=== PATIENT | male | born 1950 | race Caucasian/White ===

== ENCOUNTER → 2016-10-22 08:27 | Outpatient (CLI) | payer MEDICARE, BC ==
[2012-12-26 01:01] VITALS: BMI 28.7
[~2016-10-22 08:27] MED LIST: ASPIRIN 81 MG E81 MG PO; CENTRUM COMPLE1 EACH PO; COLACE100 MG PO; LISINOPRIL10 MG PO; PLAVIX75 MG PO; WELLBUTRIN75 MG PO; ZOCOR20 MG PO
== END | disposition home or self-care (01) ==
LOC: D.NM 08:27
DX: K30 Functional dyspepsia (principal)

== ENCOUNTER 2017-01-27 06:08 | Day surgery (SDC) | payer MEDICARE, BC ==
--- NOTE | 2017-01-26 09:06 | NUR ---
ARAM APPT: DR. RENNER'S NURSE, MATTEO, NOTIFIED PATIENT CURRENTLY TAKING PLAVIX. STATES "THAT'S OK, HE DOES NOT NEED TO STOP IT".
[2017-01-26 10:14] LABS: BASOPHILS 0.4 % (0-2); EOSINOPHILS 6.4 % (0-7); HEMATOCRIT 40.4 % (42.0-54.0); HEMOGLOBIN 13.5 g/dL (13.5-17.5); IMMATURE GRANULOCYTES 0.1 % (0-5); LYMPHOCYTES 32.4 % (15-50); MCHC 33.4 g/dL (31.0-37.0); MCV 95.7 fL (80.0-100.0); MEAN PLATELET VOLUME 10.2 fL (7.4-10.4); MONOCYTES 11.8 % (2-11); NEUTROPHILS 48.9 % (40-80); PLATELET COUNT 253 10x3/uL (130-400); RBC 4.22 10x6/uL (4.20-6.10); RDW 13.7 % (11.5-14.5); WBC 6.9 10x3/uL (4.8-10.8)
[2017-01-26 10:24] LABS: ANION GAP 17.2 mmol/L (8-16); CALCIUM 9.8 mg/dL (8.5-10.1); CARBON DIOXIDE 24.2 mmol/L (21.0-32.0); CREATININE - SERUM 1.3 mg/dL (0.6-1.3); POTASSIUM - SERUM 4.4 mmol/L (3.5-5.1)
[2017-01-26 10:48] LABS: APTT 29.7 SECONDS (22.8-39.4)
[~2017-01-27] VITALS: Ht 175.3 cm; Wt 89.8 kg
[~2017-01-27 06:08] MED LIST changes: -ASPIRIN 81 MG E81 MG PO; +BAYER CHEWABLE81 MG PO; +COREG 3.1253.125 MG PO; +TOPAMAX100 MG PO; +ZESTRIL10 MG PO
[2017-01-27] MEDS ORDERED: CYMBALTA60 MG PO (08:55)
[2017-01-27] MEDS ORDERED: FENOFIBRATE134 MG PO (08:57)
[2017-01-27] MEDS ORDERED: ACTOS30 MG PO (08:58)
[2017-01-27] MEDS ORDERED: GLUCOPHAGE500 MG PO (08:58)
[2017-01-27] MEDS ORDERED: REGLAN10 MG PO (09:01)
[2017-01-27] MEDS ORDERED: CENTRUM SILVER1 TA1 PO (09:01)
[2017-01-27] MEDS ORDERED: LIPITOR40 MG PO (09:04)
[2017-01-27] MEDS ORDERED: HYDROCODONE-APA1 TAB PO (09:05)
[2017-01-27] MEDS ORDERED: ATIVAN0.5 MG PO (09:05)
[2017-01-27] MEDS ORDERED: OMEPRAZOLE20 M1 PO (09:06)
[2017-01-27] MEDS ORDERED: INDOCIN25 MG PO (09:07)
[2017-01-27 09:17] VITALS: BP 110/72; Ht 175.3 cm; Wt 89.8 kg
[2017-01-27] MEDS ORDERED: OXYCODONE HCL5 MG PO (12:12)
--- NOTE | 2017-01-27 14:19 | NUR ---
1415 ADA FO DIET SERVED
== END 2017-01-27 15:10 | disposition home or self-care (01) ==
LOC: D.OPS 06:08 → D.PAN 10:30 → D.OPS 10:30
PROVIDERS: Anesthesiology
DX: K82.8 Other specified diseases of gallbladder (principal); E11.9 Type 2 diabetes mellitus without complications; I10 Essential (primary) hypertension; Z86.73 Personal history of transient ischemic attack (TIA), and cerebral infarction without residual deficits; I25.10 Atherosclerotic heart disease of native coronary artery without angina pectoris; K21.9 Gastro-esophageal reflux disease without esophagitis; Z01.812 Encounter for preprocedural laboratory examination

== ENCOUNTER → 2017-05-19 12:36 | Outpatient (CLI) | payer MEDICARE, BC ==
[2017-01-27 09:17] VITALS: BMI 29.3
[~2017-05-19 12:36] MED LIST changes: +ACTOS30 MG PO; +ATIVAN0.5 MG PO; +CENTRUM SILVER1 TA1 PO; +CYMBALTA60 MG PO; +FENOFIBRATE134 MG PO; +GLUCOPHAGE500 MG PO; +HYDROCODONE-APA1 TAB PO; +INDOCIN25 MG PO; +LIPITOR40 MG PO; +OMEPRAZOLE20 M1 PO; +OXYCODONE HCL5 MG PO; +REGLAN10 MG PO
== END | disposition home or self-care (01) ==
LOC: D.MRI 12:36
DX: M25.512 Pain in left shoulder (principal)

== ENCOUNTER 2017-07-13 08:00 | Emergency (ER) | payer MEDICARE, BC ==
[2017-01-27 09:17] VITALS: BMI 29.3
[2017-07-13 08:34] LABS: BASOPHILS 0.2 % (0-2); EOSINOPHILS 7.2 % (0-7); HEMATOCRIT 39.7 % (42.0-54.0); HEMOGLOBIN 13.1 g/dL (13.5-17.5); IMMATURE GRANULOCYTES 0.2 % (0-5); LYMPHOCYTES 28.4 % (15-50); MCH 31.6 pg (26.0-34.0); MCV 95.9 fL (80.0-100.0); MEAN PLATELET VOLUME 9.9 fL (7.4-10.4); MONOCYTES 10.2 % (2-11); NEUTROPHILS 53.8 % (40-80); PLATELET COUNT 249 10x3/uL (130-400); RBC 4.14 10x6/uL (4.20-6.10); RDW 13.6 % (11.5-14.5); WBC 8.4 10x3/uL (4.8-10.8)
[2017-07-13 08:56] LABS: ALBUMIN 3.5 g/dL (3.4-5.0); ANION GAP 12.2 mmol/L (8-16); BILIRUBIN - TOTAL 0.2 mg/dL (0.2-1.3); CARBON DIOXIDE 25.6 mmol/L (21.0-32.0); CREATININE - SERUM 1.2 mg/dL (0.6-1.3); POTASSIUM - SERUM 3.8 mmol/L (3.5-5.1); PROTEIN - SERUM 7.4 g/dL (6.4-8.2)
[2017-07-13 09:18] LABS: CREATINE KINASE 57 UL (21-232); MAGNESIUM - SERUM 1.9 mg/dL (1.8-2.4); TROPONIN-I < 0.017 ng/mL (0.000-0.060)
== END 2017-07-13 11:10 | disposition home or self-care (01) ==
LOC: D.ER 08:00
PROVIDERS: Emergency Medicine
DX: T39.1X5A Adverse effect of 4-Aminophenol derivatives, initial encounter (principal); Y92.019 Unspecified place in single-family (private) house as the place of occurrence of the external cause; I44.0 Atrioventricular block, first degree

== ENCOUNTER 2017-07-27 09:25 | Day surgery (SDC) | payer MEDICARE, BC ==
[2017-07-23 12:02] LABS: HEMATOCRIT 39.5 % (42.0-54.0); MCH 31.4 pg (26.0-34.0); MCHC 32.9 g/dL (31.0-37.0); MCV 95.4 fL (80.0-100.0); MEAN PLATELET VOLUME 9.7 fL (7.4-10.4); RBC 4.14 10x6/uL (4.20-6.10)
[2017-07-23 12:17] LABS: INR 0.93 (0.85-1.17); PROTIME 12.1 SECONDS (11.6-15.0)
[2017-07-23 12:24] LABS: APTT 26.5 SECONDS (22.8-39.4)
[2017-07-23 12:27] LABS: ANION GAP 10.6 mmol/L (8-16); CALCIUM 9.4 mg/dL (8.5-10.1); CARBON DIOXIDE 26.3 mmol/L (21.0-32.0); CREATININE - SERUM 1.1 mg/dL (0.6-1.3); POTASSIUM - SERUM 3.9 mmol/L (3.5-5.1)
--- NOTE | ~2017-07-27 | OP ---
PATIENT NAME: SANDRA LEIJA MEDICAL RECORD: [id number] :50 LOCATION:[facility] ADMISSION DATE: SURGEON: HELLEN DOYLE DO DATE OF OPERATION: 07/27/2017 DATE OF SURGERY: 07/27/2017 PROCEDURE PERFORMED: Left shoulder arthroscopy with subacromial decompression, distal clavicle excision, biceps tenodesis. PREOPERATIVE DIAGNOSES: Left shoulder subacromial impingement, SLAP tear and acromioclavicular joint arthritis. POSTOPERATIVE DIAGNOSES: Left shoulder subacromial impingement, SLAP tear and acromioclavicular joint arthritis. INDICATIONS: Mr. Leija is a 66-year-old male that has had left shoulder pain for quite some time. He had pain with overhead activities and even some weakening. He had tired of this giving him problems and came to my office. An MRI had been done, which demonstrated AC joint arthritis and probable SLAP tear, subacromial impingement type picture with they read as a partial thickness rotator cuff tear. I injected him in the subacromial space to give him some relief, it did not and he wanted something done surgically, so he was consented for the procedure. He was informed of the risks and benefits including, who did have a rotator cuff tear, a longer recovery and I told him I would get a better look with a scope and he was okay with that. SURGEON: Hellen Doyle DO COMPLICATIONS: None. BLOOD LOSS: Minimal. DESCRIPTION OF PROCEDURE: The patient received a block in the preoperative area by anesthesia. The patient after receiving block in the preoperative suite, given 900 mg clindamycin preoperatively. After he was given clindamycin, a timeout was performed, everyone was in agreement with the correct side, site and patient. Left shoulder was then prepped and draped in sterile fashion. The surgery then commenced with an 18-gauge spinal needle we introduced into the shoulder joint itself, insufflated with 60 mL of normal saline and then the 11 blade was used to establish posterior portal. The trocar was entered into the shoulder joint itself and the camera was then entered in and right away was a good sized SLAP tear type 2 at the superior labrum. Then, the anterior portal was established with an 18-gauge needle with an 11-blade scalpel and then a trocar was put in. The shoulder joint was inspected. He did have some arthritis in the glenohumeral joint. Chondromalacia was noted. The rotator cuff, supraspinatus, infraspinatus, and subscapularis were all inspected and there was no full-thickness tear seen on the articular side. At that time, the biceps was then tenodesed with an ablator and then once this was done, the subacromial space was entered. There was quite a bit of bursitis and bursa inflamed in the subacromial space. A lateral portal was then established and this was chewed out with a shaver. The acromion was then cleaned off of the ablator. A resection was done on that to clear the anterolateral acromion opening up the subacromial space quite a bit. The distal clavicle was then also resected back to have a total width of 7 mm in the AC joint, that was clear and OPERATIVE REPORT [id number] SANDRA LEIJA then the rotator cuff was thoroughly inspected on the bursal side. All the bursa was removed. Once the bursa was removed, there were no full-thickness tears seen whatsoever in the rotator cuff. It was rotated internally and externally and inspected very thoroughly. No tears were noted. At that time, the scope was then removed and moved to the anterior part of the humerus. A small incision was made just distal to where the pack inserted. Careful dissection was made down to the bicep tendon itself. It was pulled out through the incision, had been tenotomized in the joint, whipstitched with a suture and then the sutures ran through a button. Unicortical hole was then drilled in the humerus and the button was placed down in through that hole and cinched down and the button flipped on the underside of the cortex and a free needle was used to suture through the biceps tendon and tied down on top of it. The excess tendon and suture were then closed. The wound was thoroughly irrigated. Skin was closed with 2-0 Vicryl in an inverted interrupted fashion, 4-0 Monocryl ran on the skin in that incision. The portal sites were all closed with 4-0 Monocryl in an inverted interrupted fashion and then Dermabond was placed over each one of the incisions and then Telfa and Tegaderm. The patient was awakened and taken to recovery in stable condition, placed in a sling. TRANSINT:[id number] Voice Confirmation ID: [id number] DOCUMENT ID: [id number] HELLEN DOYLE DO at 1419 CC: [id number] DICTATION DATE: 07/27/17 1208 ADMITTANCE ATTENDANT: 07/27/17 134[id number] [place] [id number]
[2017-07-27 09:51] VITALS: BP 154/88; BMI 26.6
[2017-07-27] MEDS ORDERED: PERCOCET 10/3251 TA1 PO (11:59)
== END 2017-07-27 14:35 | disposition home or self-care (01) ==
LOC: D.OPS 09:25
PROVIDERS: Anesthesiology
DX: M75.42 Impingement syndrome of left shoulder (principal); S43.432A Superior glenoid labrum lesion of left shoulder, initial encounter; M13.812 Other specified arthritis, left shoulder; X58.XXXA Exposure to other specified factors, initial encounter; Z01.812 Encounter for preprocedural laboratory examination

== ENCOUNTER 2019-02-27 16:58 | Observation (INO) | payer MEDICARE, BC ==
[~2019-02-27] VITALS: Ht 175.3 cm; Wt 76.7 kg
[~2019-02-27 16:58] MED LIST changes: +PERCOCET 10/3251 TA1 PO
[2019-02-27 17:29] LABS: BASOPHILS 0.3 % (0-2); EOSINOPHILS 2.4 % (0-7); HEMATOCRIT 38.5 % (42.0-54.0); HEMOGLOBIN 12.6 g/dL (13.5-17.5); IMMATURE GRANULOCYTES 0.3 % (0-5); LYMPHOCYTES 24.9 % (15-50); MCH 31.3 pg (26.0-34.0); MCHC 32.7 g/dL (31.0-37.0); MCV 95.8 fL (80.0-100.0); MEAN PLATELET VOLUME 10.5 fL (7.4-10.4); MONOCYTES 10.8 % (2-11); NEUTROPHILS 61.3 % (40-80); PLATELET COUNT 238 10x3/uL (130-400); RBC 4.02 10x6/uL (4.20-6.10); RDW 13.6 % (11.5-14.5)
[2019-02-27 18:09] LABS: ALBUMIN 3.8 g/dL (3.4-5.0); ANION GAP 15.5 mmol/L (8-16); BILIRUBIN - TOTAL 0.51 mg/dL (0.2-1.3); CALCIUM 8.8 mg/dL (8.5-10.1); CARBON DIOXIDE 25.9 mmol/L (21.0-32.0); CREATININE - SERUM 1.3 mg/dL (0.6-1.3); POTASSIUM - SERUM 3.4 mmol/L (3.5-5.1); PROTEIN - SERUM 7.6 g/dL (6.4-8.2)
[2019-02-27 18:44] LABS: T4 THYROXIN - FREE 0.82 ng/dL (0.76-1.46); THYROID STIMULATING HORMONE 1.48 uIU/mL (0.36-3.74)
--- NOTE | 2019-02-27 20:00 | NUR ---
A/O WITH NO SIGNS OF ACUTE DISTRESS. IV TO THE LT FOREARM WITH NO REDNESS OR SWELLING. DENIES PAIN OR OTHER NEEDS AT THIS TIME. CONTINUE WITH PLAN OF CARE.
[2019-02-27 21:57] VITALS: BP 97/62; BMI 25.0
[2019-02-27 22:28] VITALS: BP 97/62
[2019-02-28] VITALS: BP 118/63
[2019-02-28 06:13] VITALS: BP 139/70
--- NOTE | 2019-02-28 07:12 | NUR ---
PATIENT RECIEVED FROM PREVIOUS SHIFT RESTING IN BED WITH NO NEEDS VOICED. HOPES TO BE DISCHARGED LATER TODAY
--- NOTE | 2019-02-28 08:46 | HP ---
PATIENT: SANDRA PRO MEDICAL RECORD: [id number] ACCOUNT: [id number] LOCATION:[facility] : 50 ADMISSION DATE: 02/27/19 PCP: DAR BE MD HISTORY AND PHYSICAL EXAMINATION DATE OF ADMISSION: 02/27/2019 REASON FOR ADMISSION: Syncopal episodes and hypotension. HISTORY: This is a 68-year-old white male, who I have not seen in 11 months. He has a history of depression, diabetes, hypertension, migraine headaches, heart disease, colon cancer. His states he is very depressed, he stays in bed, and does not eat much. His blood pressure has become low. He has become weakened and has been falling recently. He has lost 20 pounds since I saw him last. In my office, his blood pressure by me was 74/52 with an O2 sat of 97%. I did not feel comfortable sending him home with that lower blood pressure and he is placed in observation to [facility]. PAST MEDICAL AND SURGICAL HISTORY: Again depression, diabetes, gout, high cholesterol, hypertension, migraine headaches, coronary artery disease, stroke, colon cancer. PAST SURGICAL HISTORY: Partial resection of colon by Dr. Matamoros in November 2009. He has also had a cholecystectomy and left shoulder arthroscopy with subacromial decompression and distal clavicle excision. HOME MEDICATIONS: Include lisinopril 10 mg once a day, carvedilol 3.125 mg twice a day, atorvastatin 40 mg once a day, Plavix 75 mg once a day, fenofibrate 134 mg once a day, metformin 500 mg twice a day, Actos 30 mg once a day, lorazepam 0.5 b.i.d. p.r.n. anxiety, topiramate 100 mg twice a day, duloxetine 60 mg twice a day, Depakote ER 250 two at bedtime, metoclopramide one before meals and bedtime, Zofran every 8 hours p.r.n. nausea, Colace twice a day, omeprazole 20 mg one a day, aspirin 81 mg once a day. DRUG ALLERGIES: None known. SOCIAL HISTORY: He is . He is retired. HABITS: Former smoker. Occasional beer or wine. No illicit drug use. FAMILY HISTORY: Father at 54 of heart disease. Mother at 72 of lung cancer. Brother of cancer. REVIEW OF SYSTEMS: GENERAL: He has had a 20-pound weight loss since I saw him in March of 2018. HEENT: No particular sinus or allergy problems. RESPIRATORY: No history of COPD or emphysema. CARDIAC: He has a history of coronary artery disease. GASTROINTESTINAL: He has history of colon cancer with partial colectomy by Dr. Matamoros in 2009. He has heartburn. GENITOURINARY: No significant problems there. MUSCULOSKELETAL: He has had shoulder surgery. He has a few aches and pains. NEUROLOGICAL: He has migraine headaches, followed by Dr. Lynne. PSYCHIATRIC: He has depression. In the past, he has been seen as an outpatient at [facility]. HISTORY AND PHYSICAL [id number] SANDRA PRO PHYSICAL EXAMINATION: VITAL SIGNS: In my office, his blood pressure was 72/54. In the hospital this evening, his blood pressure was 97/62, temperature 98.1, pulse 80, respirations 18. GENERAL: He is awake and alert. He does not appear in acute distress except he is thinner than he used to be. SKIN: A little pale. HEENT: Grossly within normal limits. NECK: Supple. No JVD or bruit. HEART: Regular rate and rhythm without murmur. LUNGS: Fairly clear. ABDOMEN: Soft, flat, nontender. EXTREMITIES: No edema. NEUROLOGIC: Unremarkable. LABORATORY DATA: CBC: White count 6000, hemoglobin 12.6, hematocrit 38.5 with a normal differential. Sodium 144, potassium 3.4, chloride 106, CO2 of 25.9, BUN 16, creatinine 1.3, glucose 101, his A1c is 5.7, calcium 8.8. Liver functions are all normal. TSH 1.48, free T4 of 0.82. Chest x-ray is done and read as no acute cardiopulmonary disease. ASSESSMENT: 1. Syncopal episodes. 2. Hypotension. 3. A 20-pound weight loss in the past year. 4. Depression. 5. Diabetes, apparently well controlled. PLAN: We will give fluids tonight. Hold his blood pressure medications. Continue other medications per MAR. Other tests or procedures as warranted. TRANSINT:[id number] Voice Confirmation ID: [id number] DOCUMENT ID: [id number] DAR BE MD at 0846 CC: [id number] DICTATION DATE: 02/27/192323 VERIFICATION REP: 02/28/19 0302 ADM IN [facility] [address] [id number]
[2019-02-28 08:47] VITALS: BP 152/93
[2019-02-28 13:27] VITALS: Ht 175.3 cm; Wt 76.7 kg
--- NOTE | 2019-02-28 13:36 | NUR ---
IV REMOVED WITH NO REDNESS OR EDEMA AT SITE. DISCHARGE INSTRUCTIONS GIVEN WITH PATIENT VOICING UNDERSTANDING. PATIENT TAKEN BY WHEELCHAIR TO PRIVATE CAR
== END 2019-02-28 13:37 | disposition home or self-care (01) ==
LOC: D.MS 16:58 → OBSVTIME 16:59 → D.MS 02-28 13:37
PROVIDERS: ADMIT Family Medicine; ATTEND Family Medicine
DX: I95.2 Hypotension due to drugs (principal); R55 Syncope and collapse; F32.9 Major depressive disorder, single episode, unspecified; E11.9 Type 2 diabetes mellitus without complications; R63.4 Abnormal weight loss; E86.0 Dehydration; T46.4X5A Adverse effect of angiotensin-converting-enzyme inhibitors, initial encounter; T44.7X5A Adverse effect of beta-adrenoreceptor antagonists, initial encounter

== ENCOUNTER → 2019-05-24 14:22 | Outpatient (CLI) | payer MEDICARE, BC ==
[2019-02-28 13:27] VITALS: BMI 24.9
== END | disposition home or self-care (01) ==
LOC: D.LABREF 14:22
PROVIDERS: ATTEND Family Medicine
DX: R19.7 Diarrhea, unspecified (principal)

== ENCOUNTER → 2019-06-22 07:44 | Outpatient (CLI) | payer MEDICARE ==
[2019-02-28 13:27] VITALS: BMI 24.9
--- NOTE | ~2019-06-22 | ST ---
PATIENT:SANDRA PRO MEDICAL RECORD: [id number] SEX: M LOCATION:[facility] ORDER #: ADMISSION DATE: 06/22/19 AGE OF PATIENT: 68 REFERRING PHYSICIAN: INTERPRETING PHYSICIAN: MYLES ZEE MD DATE OF SERVICE: 06/22/2019 INDICATION: Angina and coronary artery disease, hypertension, hyperlipidemia, and shortness of breath. He was exercised on standard Lexiscan protocol with 33 mCi of sestamibi injected at peak stress, 11 mCi used previously for rest images. FINDINGS: Gated SPECT reveals a decreased ejection fraction of 46% with decreased thickening and brightening throughout the inferior segments. SPECT imaging Cardiolite was used as myocardium perfusion agent. There is a mixed perfusion defect inferiorly, partially fixed, partial reversibility apically. OVERALL IMPRESSION: This is an intermediate risk abnormal nuclear stress test with a relatively large perfusion defect inferoapically partially fixed, partially reversible. Gated SPECT reveals decreased ejection fraction of 46% in this patient with ongoing symptomatology. The current scan does suggest the presence of hemodynamically significant coronary artery disease. TRANSINT:[id number] Voice Confirmation ID: [id number] DOCUMENT ID: [id number] MYLES ZEE MD CC: DAR BE MD [id number] DICTATION DATE: 06/22/19 1628 HOSPITAL LABORATORY TECHNICIAN: 06/23/19 0303 DEP CLI 06/22/19 [id number] [place] [address]
== END | disposition home or self-care (01) ==
LOC: D.HCCARDIO 07:44
PROVIDERS: ATTEND Internal Medicine Interventional Cardiology
DX: I25.10 Atherosclerotic heart disease of native coronary artery without angina pectoris (principal)

== ENCOUNTER → 2020-09-04 11:32 | Outpatient (CLI) | payer MEDICARE ==
[2020-05-01 14:24] VITALS: BMI 17.8
[~2020-09-04 11:32] MED LIST changes: +DEPAKOTE250 MG PO; +DONEPEZIL HCL10 MG PO; +EFFEXOR37.5 MG PO; +FLOMAX0.4 MG PO; +FOLIC ACID1 MG PO; +LIPITOR20 MG PO; +PROTONIX40 MG PO; +TRICOR145 MG PO; +ULTRAM50 MG PO; +VITAMIN B-121000 MCG PO; +VITAMIN D1000 UNI2 PO
== END | disposition home or self-care (01) ==
LOC: D.HCCECHO 11:30
PROVIDERS: ATTEND Internal Medicine Cardiovascular Disease
DX: I25.10 Atherosclerotic heart disease of native coronary artery without angina pectoris (principal)

== ENCOUNTER 2020-11-02 11:48 | Inpatient (IN) | payer MEDICARE ==
[~2020-11-02] VITALS: Ht 175.3 cm; Wt 80.7 kg
[2020-11-02 12:24] LABS: BASOPHILS 0.7 % (0-2); HEMOGLOBIN 13.5 g/dL (13.5-17.5); LYMPHOCYTES 21.8 % (15-50); MCH 30.5 pg (26.0-34.0); MCHC 32.9 g/dL (31.0-37.0); MCV 92.7 fL (80.0-100.0); MEAN PLATELET VOLUME 7.9 fL (7.4-10.4); MONOCYTES 7.5 % (2-11); RBC 4.42 10x6/uL (4.20-6.10); RDW 14.4 % (11.5-14.5); WBC 11.2 10x3/uL (4.8-10.8)
[2020-11-02 12:25] LABS: PLATELET COUNT 291 10x3/uL (130-400)
[2020-11-02 12:33] LABS: CALC OSMOLALITY 282 mosm/kg (275-300); CALCIUM 8.8 mg/dL (8.5-10.1); CARBON DIOXIDE 25.4 mmol/L (21.0-32.0); CHLORIDE - SERUM 108 mmol/L (98-107); CREATININE - SERUM 1.1 mg/dL (0.6-1.3); GLUCOSE 146 mg/dL (74-106); POTASSIUM - SERUM 3.5 mmol/L (3.5-5.1); SODIUM 141 mmol/L (136-145); UREA NITROGEN 11 mg/dL (7-18); eGFR NON AFRICAN AMERICAN 70 mL/min (90-120)
[2020-11-02 12:34] LABS: BILIRUBIN NEGATIVE (NEGATIVE); KETONE NEGATIVE (NEGATIVE); NITRITE NEGATIVE (NEGATIVE); UROBILINOGEN NORMAL mg/dL (< 2)
[2020-11-02 12:39] LABS: ALBUMIN 3.6 g/dL (3.4-5.0); ALKALINE PHOSPHATASE 73 U/L (30-120); ALT (SGPT) 23 U/L (10-68); BILIRUBIN - TOTAL 0.36 mg/dL (0.2-1.3); MAGNESIUM - SERUM 1.9 mg/dL (1.8-2.4); PROTEIN - SERUM 8.1 g/dL (6.4-8.2)
[2020-11-02 12:40] LABS: ACETAMINOPHEN < 10.0 ug/mL (10.0-30.0)
[2020-11-02 12:43] LABS: UDS - AMPHET NEGATIVE QUAL (NEGATIVE); UDS - BARB NEGATIVE QUAL (NEGATIVE); UDS - BENZO NEGATIVE QUAL (NEGATIVE); UDS - COCAINE NEGATIVE QUAL (NEGATIVE); UDS - OPIATE NEGATIVE QUAL (NEGATIVE); UDS - PCP NEGATIVE QUAL (NEGATIVE); UDS - THC NEGATIVE QUAL (NEGATIVE)
[2020-11-02 13:14] LABS: SARS-CoV-2 ANTIGEN NEGATIVE- SARS-COV-2 (NEGATIVE)
[2020-11-02] MEDS ORDERED: DEPAKOTE250 MG PO (13:14)
[2020-11-02] MEDS ORDERED: ULTRAM50 MG PO (13:15)
--- NOTE | 2020-11-02 13:40 | NUR ---
MESFIN STATES WITH NOTES SAYING PT HAS A HX OF DEMENTIA AND TAKING ARRICEPT THEY WILL NOT TAKE HIM.
--- NOTE | 2020-11-02 13:49 | NUR ---
FAXED INFORMATION TO [facility]
[2020-11-02 15:55] VITALS: BP 143/83
--- NOTE | 2020-11-02 15:55 | NUR ---
[place] TAPE 5TH DIGIT ON RIGHT HAND TO 4 TH DIGIT
[2020-11-02 22:23] VITALS: BP 161/86
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
[2020-11-02 23:22] LABS: BILIRUBIN NEGATIVE (NEGATIVE); KETONE NEGATIVE (NEGATIVE); NITRITE NEGATIVE (NEGATIVE); UROBILINOGEN NORMAL mg/dL (< 2)
[2020-11-03 03:52] VITALS: BP 161/86; BMI 26.8
[2020-11-03 07:13] LABS: BASOPHILS 0.4 % (0-2); EOSINOPHILS 1.9 % (0-7); HEMOGLOBIN 12.6 g/dL (13.5-17.5); LYMPHOCYTES 28.6 % (15-50); MCH 30.5 pg (26.0-34.0); MCHC 33.1 g/dL (31.0-37.0); MCV 92.1 fL (80.0-100.0); MEAN PLATELET VOLUME 8.3 fL (7.4-10.4); MONOCYTES 11.4 % (2-11); NEUTROPHILS 57.7 % (40-80); RBC 4.13 10x6/uL (4.20-6.10); RDW 14.4 % (11.5-14.5); WBC 9.1 10x3/uL (4.8-10.8)
[2020-11-03 07:14] LABS: PLATELET COUNT 268 10x3/uL (130-400)
[2020-11-03 07:50] LABS: ALBUMIN 3.3 g/dL (3.4-5.0); ALKALINE PHOSPHATASE 66 U/L (30-120); ALT (SGPT) 20 U/L (10-68); BILIRUBIN - TOTAL 0.59 mg/dL (0.2-1.3); CALC OSMOLALITY 283 mosm/kg (275-300); CALCIUM 8.9 mg/dL (8.5-10.1); CARBON DIOXIDE 24.7 mmol/L (21.0-32.0); CHLORIDE - SERUM 109 mmol/L (98-107); CHOL - HDL RATIO 4.7 ratio (2.3-4.9); CHOLESTEROL, TOTAL 212 mg/dL (0-200); GLUCOSE 111 mg/dL (74-106); HDL CHOLESTEROL 45 mg/dL (32-96); LDL CHOLESTEROL 137 mg/dL (0-100); POTASSIUM - SERUM 3.6 mmol/L (3.5-5.1); PROTEIN - SERUM 7.5 g/dL (6.4-8.2); SODIUM 142 mmol/L (136-145); THYROID STIMULATING HORMONE 3.11 uIU/mL (0.36-3.74); TRIGLYCERIDE 150 mg/dL (30-200); UREA NITROGEN 13 mg/dL (7-18); eGFR NON AFRICAN AMERICAN 79 mL/min (90-120)
[2020-11-03 09:21] VITALS: BP 128/79
--- NOTE | 2020-11-03 17:52 | NUR ---
Rec'd patient this am he was ambulatory in the hallway. He is med compliant and takes meds whole. She is a/o to person, place, and situation. He has bruising starting the healing phase to shoulders, side, ear, face, and back. He denies any suicidal attempts or self harm today. Candace Hatfield APN requested scripts from [facility] and [facility] for his past medication list. [facility] fax their but nothing from [facility]. He sat and participated in group some. He mainly sat quietly with eyes closed.
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
[2020-11-03 21:48] VITALS: BP 138/88
--- NOTE | 2020-11-04 03:22 | NUR ---
PATIENT STATES HE IS DEPRESSED. CRYING AT TIMES.
[2020-11-04 08:00] VITALS: BP 128/81
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
[2020-11-04 16:07] VITALS: Ht 175.3 cm; Wt 80.7 kg
[2020-11-04 20:00] VITALS: BP 143/90
--- NOTE | 2020-11-04 20:25 | NUR ---
RECEIVED IN HALLWAY. SITTING IN A CHAIR WITH PEERS AT HIS SIDE. SOCIAL WITH THIS NURSE. CALM AND COOPERATIVE WITH CARE AND ASSESSMENT. DENIES THOUGHT OF SLEF HARM AT THIS TIME BUT UPSET WITH A PEER. ENCOURAGE TO EXPRESS NEEDS. IN BEDROOM AT THIS TIME GETTING CLEANED UP. CONTINUE PLAN OF CARE.
[2020-11-05 07:16] LABS: RAPID PLASMA REAGIN Non Reactive (Non Reactive)
[2020-11-05 08:02] VITALS: BP 123/82
--- NOTE | 2020-11-05 08:15 | NUR ---
REC'D PT SITTING IN HALLWAY WITH PEERS. AWAKE AND ALERT X 4. CALM AND COOPERTAIVE WITH ASSESSMENT. PT DENIES SI AT THIS TIME. HOWEVER, PT STATED " JUST GET A GUN A SHOOT ME." " I WISH I WAS SUCCESSFUL WHEN I TOOK MY PILLS" TO [employer]GER MACHINE HELPER." PRESCRIBED MEDS PROVIDED ORDERED. MED COMPLAINT. NO AGGRESSION NOTED. REDIRECT AND REORIENT NEEDED. FALL PRECAUTIONS IN PLACE FOR SAFETY. WILL CPOC.
--- NOTE | 2020-11-05 08:29 | NUR ---
Pt stated he wanted someone to blow his head off with a gun. He stated he doesn't have a reason to live. He reported feeling helpless and hopeless. He stated he just doesn't want to wake up anymore. Pt was tearful and started crying heavily when discussing what brought him in. SW discussed coping skills and the importance of being on medications to help with his depression. Pt calmed down with breathing exercises.
--- NOTE | 2020-11-05 11:52 | PN ---
PATIENT:SANDRA PRO MEDICAL RECORD: [id number] LOCATION[facility] ADMISSION DATE: 11/02/20 PROGRESS NOTE DATE OF SERVICE: 11/04/2020 SUBJECTIVE: The patient's case was discussed with staff. He has no new complaint. OBJECTIVE: The patient has a depressed mood and is still reporting that he does not want to live. He says that he does not have any active thoughts of harming himself now, but does not care if he continues to live. He makes numerous very nihilistic statements indicating that when he is discharged, he is just going to live on the street rather than live at home with his and his son. ASSESSMENT: 1. Major depression. 2. Mild cognitive impairment. PLAN: Current medicines have been reviewed. I am going to increase the Effexor to 100 mg twice daily. He will be monitored for clinical changes associated with its use. TRANSINT:[id number] Voice Confirmation ID: [id number] DOCUMENT ID: [id number] JACLYN LESLIE MD at 1152 CC: [id number] DICTATION DATE: 11/04/20 1615 FIELD SERVICE TECH: 11/04/202035 ADM IN [facility] [address] [id number]
[2020-11-05 20:00] VITALS: BP 152/85
--- NOTE | 2020-11-05 20:20 | NUR ---
RECEIVED IN DAYROOM. SITTING IN A CHAIR WITH PEERS AT HIS SIDE. CALM AND COOPERATIVE WITH CARE AND ASSESSMENT. STAES HE CONTINUES TO BE DEPRESSED AND HAVE THOUGHTS OF WORTHLESSNESS. ENCOURAGE TO EXPRESS NEEDS. CONTINUES TO SIT CALMLY IN DAYROOM. CONTINUE PLAN OF CARE.
[2020-11-06 08:00] VITALS: BP 118/84
--- NOTE | 2020-11-06 08:45 | NUR ---
REC'D PT SITTING IN HALLWAY BY THE NURSES STATION. AWAKE AND ALERT X 4. CALM AND COOPERATIVE WITH ASSESSMENT AT THIS TIME. PT DENIES SI. PT MOOD IS PLEASANT AT THIS TIME. FALL PRECAUTIONS IN PLACE FOR SAFETY. WILL CPOC.
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
--- NOTE | 2020-11-06 15:11 | NUR ---
Nutrition Re-Assessment Diet: Cardiac PO Intake: 100% most meals Last BM: 11/05/20 Wt: 180.8# (11/04/20); Admit wt: 180# (11/02/20) Meds and labs reviewed Patient continues to appear to not be at nutrition risk at this time. Please consult dietitian if further MNT is medically indicated and/or desired by MD. RD will continue to monitor for nutrition risk factors DHS. RD will follow-up within 7 days.
[2020-11-06 20:00] VITALS: BP 138/82
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
[2020-11-07 08:00] VITALS: BP 113/78
--- NOTE | 2020-11-07 15:15 | NUR ---
Per category director, Spouse calls and inquires about her . The patients spouse could not relay the passcode and became verbally upset at the AD. call was terinated by caller.
--- NOTE | 2020-11-07 16:26 | NUR ---
PT VISITING WITH AT THIS TIME. PT IS CALM. AAOX4. DENIES SI. COMPLIANT WITH MEDICATIONS. AMBULATES. CAN MAKE ALL NEEDS KNOWN. NO DISTRESS NOTED. PT DOES ASSIST SOME PTS THAT ARE ANXIOUS WITH CONVERSIONS. PT IS SOCIAL WITH PEERS AND STAFF. WILL CONT TO MONITOR FOR SAFETY. WILL CONT PLAN OF CARE.
--- NOTE | 2020-11-07 16:51 | PN ---
PATIENT:SANDRA PRO MEDICAL RECORD: [id number] LOCATION:[facility] ADMISSION DATE: 11/02/20 PROGRESS NOTE DATE OF SERVICE: 11/06/2020 SUBJECTIVE: The patient's case was discussed with staff. He has no new complaint. OBJECTIVE: The patient does seem significantly better with very limited insight, but significantly better. ASSESSMENT: Major depression. PLAN: I am going to increase the patient's Effexor to 150 mg twice daily. I will also increase his Depakote. TRANSINT:[id number] Voice Confirmation ID: [id number] DOCUMENT ID: [id number] JACLYN LESLIE MD at 1651 CC: [id number] DICTATION DATE: 11/06/20 1622 [employer]AL GUNFI[employer] SPOTTER: 11/06/20 1726 ADM IN [facility] [address] [place] [address]
--- NOTE | 2020-11-07 19:55 | NUR ---
RECEIVED IN HALLWAY. SITTING CALMLY WITH PEERS AT HIS SIDE. CALM AND COOPERATIVE WITH CARE AND ASSESSMENT. NO STATEMENTS OF SELF HARM VOICED. ENCOURAGE TO EXPRESS NEEDS. CONTINUES TO SIT CALMLY IN HALLWAY. HELPFUL WITH PEERS. CONTINUE PLAN OF CARE.
[2020-11-07 20:00] VITALS: BP 127/78
[2020-11-08 08:00] VITALS: BP 122/80
--- NOTE | 2020-11-08 13:55 | NUR ---
X-RAY HERE TO X-RAY PATIENT FACE.
--- NOTE | 2020-11-08 17:30 | NUR ---
PT C/O OF PAIN TO HIS FACE. PT IS CALM AND COOPERATIVE. SOCIAL WITH PTS. COMPLIANT WITH MED, VITALS AND ASSESSMENTS. ALERT TO PERSON, PLACE, TIME AND SITUATION. DENIES SI. CAN MAKE ALL NEEDS KNOWN. X-RAY DONE TO FACIAL BONES. NO FRACTURE DETECTED. NO BEHAVIORS NOTED. WILL CONT PLAN OF CARE.
--- NOTE | 2020-11-08 19:39 | NUR ---
RECEIVED IN HALLWAY. SITTING IN A CHAIR WITH PEERS AT HIS SIDE. IN GOOD SPIRITS. HELPFUL WITH PEERS. CALM AND COOPERATIVE WITH CARE AND ASSESSMENT. NO STATEMENTS OF SELF HARM VOICED. ENCOURAGE TO EXPRESS NEEDS. CONTINUES TO SIT CALMLY IN HALLWAY. CONTINUE PLAN OF CARE.
[2020-11-08 20:00] VITALS: BP 129/79
[2020-11-09 08:00] VITALS: BP 118/93
--- NOTE | 2020-11-09 18:10 | NUR ---
pt is calm and cooperative. denies SI. Insight noted. compliant with meds, vitals and assessments. can make needs known. helpful with peers, social with other peers.
[2020-11-09 20:23] VITALS: BP 107/71
--- NOTE | 2020-11-09 20:58 | NUR ---
pt in room at this time. pt is calm and cooperative. denies si. compliant with meds, vitals and assessments. socialize with peers and is helpful with peers. ambulates. can make needs known. insight noted to situation. will cont plan of care.
[2020-11-10 08:00] VITALS: BP 130/85
--- NOTE | 2020-11-10 10:00 | NUR ---
REC'D PT SITTING IN HALLWAY SOCIALIZING WITH PEERS. CALM AND COOPERATIVE WITH ASSESSMENT AT THIS TIME. PRESCRIBED MEDS PROVIDED ORDERED. MED COMPLIANT. PT DENIES SI AT THIS TIME. NO AGGRESSION NOTED AT THIS TIME. FALL PRECAUTIONS IN PLACE FOR SAFETY. WILL CPOC.
--- NOTE | 2020-11-10 20:16 | NUR ---
RECEIVED IN BEDROOM. RESTING QUIETLY IN BED WITH EYES OPEN. CALM AND COOPERATIVE WITH CARE AND ASSESSMENT. NO STATEMENTS OF SELF HARM VOICED. ENCOURAGE TO EXPRESS NEEDS. CONTINUES TO REST QUIETLY IN HIS ROOM. CONTINUE PLAN OF CARE.
[2020-11-10 20:36] VITALS: BP 133/76
[2020-11-11 08:00] VITALS: BP 127/85
--- NOTE | 2020-11-11 09:14 | NUR ---
REC'D PT IN HALLWAY SOCIALIZING WITH PEERS. PT MOOD IS PLEASANT. PT IS CALM AND COOPERATIVE WITH ASSESSMENT. PT DENIES SI. PT IS AWAKE AND ALERT X4. NO BEHAVIORS NOTED. REDIRECT AND REORIENT NEEDED. FALL PRECAUTIONS IN PLACE FOR SAFETY. WILL CPOC.
[2020-11-11 11:55] LABS: BASOPHILS 0.4 % (0-2); EOSINOPHILS 1.8 % (0-7); HEMATOCRIT 38.4 % (42.0-54.0); HEMOGLOBIN 12.7 g/dL (13.5-17.5); LYMPHOCYTES 40.1 % (15-50); MCH 30.6 pg (26.0-34.0); MCHC 33.1 g/dL (31.0-37.0); MCV 92.6 fL (80.0-100.0); MEAN PLATELET VOLUME 7.9 fL (7.4-10.4); MONOCYTES 9.5 % (2-11); NEUTROPHILS 48.2 % (40-80); PLATELET COUNT 317 10x3/uL (130-400); RBC 4.14 10x6/uL (4.20-6.10); RDW 14.1 % (11.5-14.5); WBC 5.3 10x3/uL (4.8-10.8)
[2020-11-11 12:11] LABS: ALBUMIN 3.4 g/dL (3.4-5.0); ALKALINE PHOSPHATASE 60 U/L (30-120); ALT (SGPT) 13 U/L (10-68); BILIRUBIN - TOTAL 0.34 mg/dL (0.2-1.3); CALC OSMOLALITY 288 mosm/kg (275-300); CALCIUM 9.7 mg/dL (8.5-10.1); CARBON DIOXIDE 29.6 mmol/L (21.0-32.0); CHLORIDE - SERUM 107 mmol/L (98-107); CREATININE - SERUM 0.9 mg/dL (0.6-1.3); GLUCOSE 132 mg/dL (74-106); POTASSIUM - SERUM 4.1 mmol/L (3.5-5.1); PROTEIN - SERUM 7.6 g/dL (6.4-8.2); SODIUM 143 mmol/L (136-145); UREA NITROGEN 19 mg/dL (7-18); eGFR NON AFRICAN AMERICAN 89 mL/min (90-120)
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
[2020-11-11 20:00] VITALS: BP 140/80
--- NOTE | 2020-11-11 21:04 | NUR ---
RECEIVED IN DAYROOM. VERY NEGATIVE THIS EVENING. STATES HE IS UPSET WITH A STAFF MEMBER. ENCOURAGE TO EXPRESS CONCERNS. CALM AND COOPERATIVE WITH CARE AND ASSESSMENT. NO STATEMENTS OF SELF HARM VOICED. ENCOURAGE TO EXPRESS NEEDS. SITTING IN HIS ROOM AT THIS TIME. CONTINUES TO HAVE A NEGATIVE ATTITUDE. CONTINUE PLAN OF CARE.
[2020-11-12 08:00] VITALS: BP 133/88
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
--- NOTE | 2020-11-12 16:45 | NUR ---
PT IS TEARFUL AND UPSET AT THIS TIME. PT " STATES MY CAN NOT EVEN MAKE IT TO VISISTATION ON TIME." SW PRESENT WITH PT AT THIS TIME. CALM AND COOPERATIVE WITH ASSESSMENT AT THIS TIME. PRESCRIBED MEDS PROVIDED ORDERED. MED COMPLIANT. REDIRECT AND REORIENT NEEDED. PT CAN BECOME EASILY UPSET AT TIMES. REDIRECT AND REORIENT NEEDED. WILL CPOC.
--- NOTE | 2020-11-12 19:42 | NUR ---
RECEIVED IN HALLWAY OUTSIDE OF NURSES STATION. SITTING IN A CHAIR READING A BOOK. CALM AND COOPERATIVE WITH CARE AND ASSESSMENT. NO STATEMENTS OF SELF HARM VOICED. ENCOURAGE TO EXPRESS NEEDS. CONTINUES TO SIT QUIETLY READING A BOOK. CONTINUE PLAN OF CARE.
[2020-11-12 20:00] VITALS: BP 129/90
--- NOTE | 2020-11-12 23:38 | NUR ---
PT STATES ANXIETY. REQUEST SOMETHING TO CALM HIM. PRN ATIVAN 0.5 MG PO GIVEN FOR ANXIETY.
--- NOTE | 2020-11-13 01:30 | NUR ---
RESTING QUIETLY IN BED WITH EYES CLOSED/
[2020-11-13 08:00] VITALS: BP 119/88
--- NOTE | 2020-11-13 09:47 | NUR ---
vessel slag worker had family meeting with patient and his . Patient had to work through many emotions due to his being late for appointments. Patient felt and verbalize feelings of worthlessness and hopelessness. Patient stated he did not understand why he was feeling so depressed the last 2 days.Patient had continuous crying spells throughout the session. Patient had flat affect and continues to have severe depressive symptoms. vessel slag worker went over outpatient discharge plans and stated patient will follow up with intensive outpatient with OCTAVIO Hatfield and SARA Salazar. Patient's felt like today's session may progress, however voiced concerns over patient's severely depressed mood. Patient stated he did not want to bother nurses but reported he was in pain and was having personal issues with hemorrhoids. With patient's permission clinical social work aide reported to nurse. No other needs were voiced at this time. vessel slag worker encouraged patient to use positive self talk, assertive skills and request and what he needs on the unit, and listing five things he knows he can do. Patient agreed to assignment.
--- NOTE | 2020-11-13 15:35 | PN ---
PATIENT:SANDRA PRO MEDICAL RECORD: [id number] LOCATION:[facility] ADMISSION DATE: 11/02/20 PROGRESS NOTE DATE OF SERVICE: 11/12/2020 SUBJECTIVE: The patient's case was discussed with staff. He has no new complaint. OBJECTIVE: The patient is in good behavioral control with poor insight about his situation. ASSESSMENT: 1. Major depression. 2. Vascular dementia. PLAN: The patient has worsening of his mood, although he has no thoughts of harming himself. He is on a substantial dose of Effexor and I am not going to increase it beyond what he is currently taking. I will monitor him for clinical changes. TRANSINT:[id number] Voice Confirmation ID: [id number] DOCUMENT ID: [id number] JACLYN LESLIE MD at 1535 CC: [id number] DICTATION DATE: 11/12/20 1601 MANAGER FLEET: 11/12/20 1709 ADM IN [place] [id number] [place] [address]
--- NOTE | 2020-11-13 16:00 | NUR ---
Nutrition Re-Assessment Diet: Cardiac PO intake: 100% most meals Last BM: 11/12/20 Wt: 180# (11/10/20); Admit wt: 180# (11/02/20) Meds reviewed Labs noted (11/11/20): Glu 132(H) Patient continues to appear to not be at nutrition risk at this time. Please consult RD if further MNT is medically indicated and/or desired by MD. RD will continue to monitor for nutrition risk factors DHS. RD will follow-up within 7 days.
--- NOTE | 2020-11-13 17:48 | NUR ---
Rec'd patient this am sitting in the hallway. He is a/o times 4 to person, place, time, and situation. He is med compliant and takes meds whole. He sat in group today and read a book then slept this afternoon. He denies any suicidal ideation or self harm. He is directable.
[2020-11-13 20:00] VITALS: BP 130/86
--- NOTE | 2020-11-13 20:14 | NUR ---
PT SITTING OUT IN HALLWAY, REPORST FEELING "ANXIOUS", REQUESTED AND ADM ATIVAN PO PER MD ORDERS, SEE EMAR, PT DENIES FURTHER NEEDS
--- NOTE | 2020-11-14 03:26 | NUR ---
B)RECEIVED PATIENT SITTING OUTSIDE THE NURSE'S STATION. COOPERATIVE HOWEVER DOES RELATE SOME ANXIETY. ORIENTED X4. APPROPRIATE AND COOPERATIVE WITH UNIT MILIEU. PATIENT HAS A TENDENCY TO GET UPSET WHEN THINGS DO NOT GO HE EXPECTS AND WILL BECOME AGITATED. I)ADMINISTER MEDS AND MONITOR COMPLIANCE. OBTAIN VERBAL CONTRACT FOR NO SELF HARM. R)MED COMPLIANT. CONTRACTS VERBALLY FOR NO SELF HARM. DENIES SI. P)CONTINUE POC AND PROVIDE SAFE ENVIRONMENT.
[2020-11-14 08:42] VITALS: BP 131/77
--- NOTE | 2020-11-14 14:48 | PN ---
PATIENT:SANDRA PRO MEDICAL RECORD: [id number] LOCATION:[facility] ADMISSION DATE: 11/02/20 PROGRESS NOTE DATE OF SERVICE: 11/13/2020 SUBJECTIVE: The patient's case was discussed with staff. He has no new complaint. OBJECTIVE: The patient has a euthymic mood today and no thoughts of harming himself. He is encouraged by his future. He is eating and sleeping well. ASSESSMENT: No change in diagnoses. PLAN: I anticipate he can be transitioned out of the hospital soon. His long-term prognosis is guarded. TRANSINT:[id number] Voice Confirmation ID: [id number] DOCUMENT ID: [id number] JACLYN LESLIE MD at 1448 CC: [id number] DICTATION DATE: 11/13/20 1633 RETAIL SALES MERCHANDISER DEVELOPMENT: 11/13/20 1812 ADM IN [facility] [address] [place] [address]
--- NOTE | 2020-11-14 15:46 | NUR ---
Rec'd patient this am ambulatory in the hallway. He is a/o to all areas including situation. He has high expectations of a probable discharge tomorrow to home. He is excited. He has sat in group and participated but has also been reading a novel. He is calm and cooperative. He took his meds whole without difficulty. He had a visitor today at visitation.
--- NOTE | 2020-11-14 15:51 | NUR ---
Patient denies any suicidal ideations or self harm when asked by nursing personel.
[2020-11-14] MEDS ORDERED: DEPAKOTE500 MG PO (17:07)
[2020-11-14] MEDS ORDERED: EFFEXOR100 MG PO (17:07)
[2020-11-14 20:00] VITALS: BP 111/73
--- NOTE | 2020-11-15 01:57 | NUR ---
B)RECEIVED PATIENT LYING ON HIS BED. ALERT AND ORIENTED X4. APPROPRIATE INTERACTION WITH STAFF HOWEVER STAYS TO SELF AND READS. WANTED TO THANK STAFF FOR THE CARE HE RECEIVED. INDEPENDENT WITH ADL'S. I)ADMINISTER MEDS AND MONITOR COMPLIANCE. OBTAIN VERBAL CONTRACT FOR NO SELF HARM. R)MED COMPLIANT. CONTRACTS VERBALLY FOR NO SELF HARM. DENIES SI. P)CONTINUE POC AND PROVIDE SAFE ENVIRONMENT.
[2020-11-15 08:00] VITALS: BP 146/91
--- NOTE | 2020-11-15 08:50 | NUR ---
PT SITTING ON COUCH AT THIS TIME. PT IS CALM AND COOPERATIVE. ALERT TO PERSON, PLACE AND TIME. CAN MAKE NEEDS KNOWN. COMPLIANT WITH MEDS, VITALS AND ASSESSMENTS. DENIES SI. WILL CONT PLAN OF CARE.
--- NOTE | 2020-11-15 08:51 | NUR ---
funeral workers met with patient and discuss follow-up appointments with Candace Hatfield APRN and Mal Salazar on November 21 at 4:30 PM no other needs were voiced at this time.
--- NOTE | 2020-11-15 11:20 | NUR ---
PT HERE AT THIS TIME TO PT UP AT THIS TIME. PT IS EXCITED TO D/C AT THIS TIME. ALL PERSONAL BELONGINGS SENT HOME WITH PT. PT SIGNED PAPERWORK. NURSE WENT OVER PAPERWORK WITH PT AT THIS TIME. NURSE EDUCATED ON MEDICATIONS, HOW TO TAKE MEDICATIONS AND IF MEDICATIONS DID NOT MAKE IT TO PHARMACY THEN CALL AND NURSE WOULD CALL MEDICATIONS INTO PHARMACY. VERBALIZIE UNDERSTANDING.
--- NOTE | 2020-11-15 13:38 | PN ---
PATIENT:SANDRA PRO MEDICAL RECORD: [id number] LOCATION:[facility] ADMISSION DATE: 11/02/20 PROGRESS NOTE DATE OF SERVICE: 11/13/2020 SUBJECTIVE: The patient's case was discussed with staff. He has no new complaint. OBJECTIVE: The patient is in good behavioral control with poor insight about his situation. He does tolerate his medicines well. He has no thoughts of self-harm. He is scheduled to have followup with outpatient mental health with his first appointment being on . PLAN: At this point, I think he has reached maximum hospital benefit and I am going to discharge him in the morning if this level of improvement is maintained. TRANSINT:[id number] Voice Confirmation ID: [id number] DOCUMENT ID: [id number] JACLYN LESLIE MD at 1338 CC: [id number] DICTATION DATE: 11/14/201702 WAREHOUSE OPERATIONS ASSOCIATE: 11/14/20 1950 ADM IN [facility] [address] [place] [address]
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
== END 2020-11-15 11:20 | disposition home or self-care (01) | DRG 57 ==
LOC: D.ER 11:48 → D.PSYCH 19:50
PROVIDERS: Family Medicine; ADMIT Psychiatry & Neurology Psychiatry; ATTEND Psychiatry & Neurology Psychiatry
DX: I69.919 Unspecified symptoms and signs involving cognitive functions following unspecified cerebrovascular disease (principal); F01.51 Vascular dementia, unspecified severity, with behavioral disturbance; F32.9 Major depressive disorder, single episode, unspecified; S60.221A Contusion of right hand, initial encounter; S62.606A Fracture of unspecified phalanx of right little finger, initial encounter for closed fracture; I25.10 Atherosclerotic heart disease of native coronary artery without angina pectoris; I10 Essential (primary) hypertension; E11.42 Type 2 diabetes mellitus with diabetic polyneuropathy; E78.2 Mixed hyperlipidemia; E55.9 Vitamin D deficiency, unspecified; E53.8 Deficiency of other specified B group vitamins; I48.0 Paroxysmal atrial fibrillation; N40.0 Benign prostatic hyperplasia without lower urinary tract symptoms; R10.9 Unspecified abdominal pain; R51.9 Headache, unspecified; R35.0 Frequency of micturition